=== PATIENT | female | born 1960 | race Caucasian/White ===

== ENCOUNTER → 2017-05-02 | Outpatient (CLI) | payer OTHER ==
[~2017-05-02] MED LIST: BIOT250012 PO; BUPXL150 PO; DON PO; FLUT16SP19; IBUP-56 PO; LEVO500C PO; OMEG-96 PO; PAN40 PO; PANT40TA65 PO; PARO10TA80 PO; PRO25 PO; ROS10 PO; SIMV-42 PO; TRAZ-156 PO; UBID100C48 PO
== END ==
LOC: AUD 10:30
PROVIDERS: ATTEND Otolaryngology
DX: H69.80 Other specified disorders of Eustachian tube, unspecified ear (principal)
CPT/HCPCS: 92557; 92570

== ENCOUNTER → 2017-09-17 | Outpatient (REF) | DX: Z02.9 Encounter for administrative examinations, unspecified (principal) ==

== ENCOUNTER → 2017-10-31 | Outpatient (CLI) | payer OTHER ==
[~2017-10-31] MED LIST changes: -TRAZ-156 PO; +TRAZ50TA34 PO
[2017-10-31 13:59] LABS: PLATELET COUNT, AUTOMATED 312 K/uL (150-450)
--- NOTE | 2017-10-31 16:20 | RADIOLOGY IMAGING REPORT ---
FACILITY: [facility] - [place], [place] PATIENT NAME: Kasandra Kwon : 1960 MR: [id number] V: [id number] EXAM DATE: ORDERING PHYSICIAN: CHRIS GASTELUM TECHNOLOGIST: Location: [facility] Patient: Kasandra Kwon : 1960 Visit/Account:[id number] Date of Sevice: 10/31/2017 2 VIEWS CHEST INDICATION: Shortness of breath COMPARISON: None available FINDINGS: Heart size within normal limits. There is no focal infiltrate or lobar consolidation. There is no pneumothorax or pleural effusion. IMPRESSION: 1. No acute cardiopulmonary process. Report Dictated By: Roberto Quijano MD at 10/31/2017 4:15 PM Report E-Signed By: Roberto Quijano MD at 10/31/2017 4:16 PM WSN:[id number]
== END ==
LOC: RAD 13:46
PROVIDERS: ATTEND Nurse Practitioner Family
DX: R05 Cough (principal); R06.02 Shortness of breath
CPT/HCPCS: 36415; 71046; 85025; 86738

== ENCOUNTER → 2018-09-16 | Outpatient (REF) ==
[~2018-09-16] MED LIST changes: -ROS10 PO; +ROSU10TA PO
== END ==
DX: Z02.9 Encounter for administrative examinations, unspecified (principal)

== ENCOUNTER → 2018-12-04 | Outpatient (CLI) | payer OTHER ==
[~2018-12-04] MED LIST changes: -TRAZ50TA34 PO; +TRAZ50TA52 PO
--- NOTE | 2018-12-08 10:56 | RADIOLOGY IMAGING REPORT ---
[place]AC[place] [facility] [place]IENT NAME: JAMILA HOROWITZ : [id number] MR: [id number] V: [id number] EXAM DATE: ORDERING PHYSICIAN: JORDON RIVERS TECHNOLOGIST: Teddy Galeano RDMS, RD PROCEDURE:US RIGHT BREAST COMPARISON:Prior mammograms dated 11/20/18 INDICATIONS:further eval AREA SCANNED: The 1-4 o'clock position of the Right breast FINDINGS: In the 2 o'clock position of the Right breast 3cm from the nipple there is a 7mm in diameter anechoic structure with a calcific rim which would account for the recent mammographic findings. DIAGNOSTIC CATEGORY 2--BENIGN FINDING. RECOMMENDATIONS: ROUTINE MAMMOGRAM AND CLINICAL EVALUATION. IMPRESSION: BIRADS 2: Benign finding. There is a 7mm cyst with a calcified rim in the 2 o'clock position of the Right breast accounting for the mammographic findings. Dictated by: Lucina Sullivan M.D. on 12/04/2018 at 12:17 Transcribed by: MARSHALL on 12/08/2018 at 10:40 Approved by: Lucina Sullivan M.D. on 12/08/2018 at 10:50 [facility]
== END ==
LOC: US 07:04
PROVIDERS: ATTEND Nurse Practitioner Family
DX: N60.01 Solitary cyst of right breast (principal)